=== PATIENT | male | born 1970 | race Caucasian/White ===

== ENCOUNTER 2020-12-16 22:07 | Emergency (ER) | payer SELFPAY ==
[~2020-12-16] VITALS: Ht 177.8 cm; Wt 113.4 kg
--- NOTE | 2020-12-16 22:48 | NUR ---
Patient discharged to home in stable condition. Written and verbal after care instructions given. Patient verbalizes understanding of instructions. Stressed follow up or return to ER for worsening s/s.
[2020-12-16 22:49] VITALS: BP 141/95
== END 2020-12-16 22:50 | disposition home or self-care (01) ==
LOC: ER 22:07
DX: L98.9 Disorder of the skin and subcutaneous tissue, unspecified (principal); R03.0 Elevated blood-pressure reading, without diagnosis of hypertension
CPT/HCPCS: A4663

== ENCOUNTER 2021-02-13 11:38 | Emergency (ER) | payer SELFPAY ==
[~2021-02-13] VITALS: Ht 177.8 cm; Wt 113.4 kg
--- NOTE | 2021-02-13 11:49 | NUR ---
Dr Rehman at the bedside for MSE.
[2021-02-13] MEDS ORDERED: NEOM10DR11 OT (11:55)
[2021-02-13 12:03] VITALS: BP 115/77
== END 2021-02-13 12:07 | disposition home or self-care (01) ==
LOC: ER 11:38
DX: K12.1 Other forms of stomatitis (principal); T28.0XXA Burn of mouth and pharynx, initial encounter; X10.1XXA Contact with hot food, initial encounter; Y92.89 Other specified places as the place of occurrence of the external cause; H60.92 Unspecified otitis externa, left ear
CPT/HCPCS: A4663